=== PATIENT | female | born 1950 | race Caucasian/White ===

== ENCOUNTER 2025-02-22 09:22 | Emergency (ER) | payer MEDICARE, BC, SELFPAY ==
[2025-02-22] VITALS (13 sets, daily range): BP systolic 100–130; BP diastolic 74–93; PULSE 98–121; TEMP 36.7; O2SAT 94–98; BMI 30.4
--- NOTE | 2025-02-22 09:41 | ECG_ITS ---
[facility] Test Date: 2025-02-22 Pat Name: RAKEL ANDRADE Department: Room: - Gender: Female Lap Maker: : 1950 Requested By: [id number] Order Number: [id number] Reading MD: NAFISA BILLINGS M.D. Measurements Intervals [place] Rate: 108 P: -8 MA: 134 QRS: 45 QRSD: 92 T: 30 QT: 320 QTc: 384 Interpretive Statements 1120 Sinus tachycardia 2440 Incomplete right bundle branch block [address] depression 7300 Indeterminate axis 8003 Consistent with pulmonary disease 8102 Low QRS voltage in chest leads 9150 abnormal ECG No previous ECG available for comparison Electronically Signed On 02-22-2025 21:43:55 EDT by NAFISA BILLINGS M.D.
--- NOTE | 2025-02-22 09:43 | ED.GENADUL1 ---
HPI HPI - General Adult General Chief complaint: Nausea/Vomiting/Diarrhea Stated complaint: FALL VOMITTING DEHYDRATION Time Seen by Provider: 02/22/25 09:36 Source: patient Mode of arrival: walk-in History of Present Illness HPI narrative: 74-year-old female presents for multiple complaints. Her chief complaint seems to be nausea and vomiting. A week and a half ago she tripped and she fell and she hit the right side of her face. Since then she has had headache and neck pain and sometimes sees electricity. She states that she sees flashes intermittently. She also has a pain on the right side of her abdomen which previously was lower and now has moved to the upper right abdomen. No diarrhea but she has been vomiting and she was around the person who had been vomiting. No hematemesis or fever. She has been weak recently. She states that for a week she did not take her medications including her metoprolol and isosorbide. She took doses of each of those today. Related Data Home Medications ?Medication ?Instructions ?Recorded ?Confirmed alendronate 70 mg tablet 70 mg PO .Weekly 02/22/25 02/22/25 aspirin 81 mg tablet,delayed 81 mg PO DAILY 02/22/25 02/22/25 release (Tello Low Dose Aspirin) fluticasone 100 mcg-salmeterol 50 1 inh inhalation DAILY 02/22/25 02/22/25 mcg/dose blistr powdr for inhalation (Advair Diskus) furosemide 40 mg tablet 40 mg PO DAILY 02/22/25 02/22/25 isosorbide mononitrate 60 mg 60 mg PO DAILY 02/22/25 02/22/25 tablet,extended release 24 hr metoprolol succinate 50 mg 50 mg PO DAILY 02/22/25 02/22/25 tablet,extended release 24 hr nitroglycerin 0.4 mg sublingual 0.4 mg sublingual Q5M 02/22/25 02/22/25 tablet Allergies Allergy/AdvReac Type Severity Reaction Status Date / Time codeine AdvReac Severe Nausea Verified 02/22/25 09:46 latex AdvReac Severe Unknown Verified 02/22/25 09:46 naproxen (From Aleve) AdvReac Severe Numbness Verified 02/22/25 09:46 [id number] Reductase AdvReac Severe Swelling Verified 02/22/25 09:46 Inhibitor of Lip/Tongue/Throat triamterene AdvReac Severe Cramping Verified 02/22/25 09:46 of the Muscles Opioid HPI Opioid Management Most Recent Opioid Data: No Data to Display Review of Systems ROS Narrative A ten point review of systems is negative except as noted above. PFSH PFSH Medical History (Updated 02/22/25 @ 12:02 by Alfonso Charles MD) Cataract ?H26.9 - Unspecified cataract (ICD-10) Degenerative disk disease Osteoporosis ?M81.0 - Age-related osteoporosis without current pathological fracture (ICD-10) CVD (cardiovascular disease) ?I25.10 - Atherosclerotic heart disease of [place] coronary artery without angina pectoris (ICD-10) Surgical History (Updated 02/22/25 @ 11:38 by Gianni Otero RN) Hx of cholecystectomy ?Z90.49 - Acquired absence of other specified parts of digestive tract (ICD-10) Hx of knee surgery ?Z98.890 - Other specified postprocedural states (ICD-10) History of hysterectomy ?Z90.710 - Acquired absence of both cervix and uterus (ICD-10) H/O cardiac catheterization ?Z98.890 - Other specified postprocedural states (ICD-10) Social History Little interest or pleasure in doing things: not at all Feeling down, depressed, or hopeless: not at all Exam Narrative Exam Narrative: Nurses note and vital signs reviewed and patient is not hypoxic. General: The patient in no apparent distress. Skin: Warm, dry, no pallor noted. There is no rash noted. Head: Normocephalic, atraumatic Eye: Normal conjunctiva, no drainage, EOMI. PERRL Ears, Nose, Mouth, and Throat: oral mucosa is moist. Nares patent. Cardiovascular: Regular Rate and Rhythm, tachycardic Respiratory: Patient is in no distress, no accessory muscle use, lungs are clear to auscultation, no wheezing, rales or rhonchi Back: non-tender GI: She has some tenderness on the right side of the abdomen diffusely but there is no bruise or abrasion or focal area of tenderness. Musculoskeletal: The patient has no evidence of calf tenderness, no pitting edema, symmetrical pulses noted bilaterally Neurological: A&O x4, normal speech Psychiatric: Cooperative Constitutional Vital Signs, click to edit/add: Last Vital Signs Temp 98.1 F 04/21/25 09:33 Pulse 107 H 02/22/25 12:40 Resp 24 H 02/22/25 12:40 BP 110/78 02/22/25 12:31 Pulse Ox 94 L 02/22/25 12:40 Course Vital Signs Vital signs: Vital Signs Blood Pressure 130/93 H 02/22/25 09:32 Pulse Oximetry 95 02/22/25 09:32 Temperature 98.1 F 02/22/25 09:33 Pulse Rate 107 H 02/22/25 12:40 Respiratory Rate 24 H 02/22/25 12:40 Blood Pressure 110/78 02/22/25 12:31 Pulse Oximetry 94 L 02/22/25 12:40 Medical Decision Making MDM Narrative Medical decision making narrative: Her troponin came back elevated at 21,000. The CTs of her head, neck, face, and abdomen are negative. Radiologist noted a 26 x 23 mm hypodense mass in the left lower pole of the kidney. No acute intra-abdominal pathology. She was given aspirin and started on an IV heparin drip. EKG does not show any acute findings. The EKG does show a sinus tachycardia with a rate of [address] segment elevation. She has a history of heart catheterization, the last one was in 2011 and she has no stents. She is hemodynamically stable for transfer and agreeable for transfer. Treatment diagnosis and disposition were discussed with the patient. I spoke to the hospitalist at [facility] who accepts the patient. Differential Diagnosis Differential Diagnosis: Intracranial hemorrhage, facial fracture, intra-abdominal injury Lab Data Lab results reviewed: Yes I reviewed the patient's lab results Labs: Lab Results 02/22/25 02/22/25 Range/Units 09:43 11:24 WBC 15.4 H (4.0-11.0) 10^3/uL RBC 5.25 (4.20-5.40) 10^6/uL Hgb 14.8 (12.0-16.0) g/dL Hct 45.1 (36.0-48.0) % MCV 85.9 (81.0-99.0) fL MCH 28.2 (26.7-34.0) pg MCHC 32.8 (29.9-35.2) g/dL RDW 14.8 (11.0-15.0) % Plt Count 227 (150-450) 10^3/uL MPV 10.5 (9.5-13.5) fL Neut % (Auto) 78.3 H (43.0-75.0) % Lymph % (Auto) 12.7 L (20.5-60.0) % [place] % (Auto) 8.4 (1.7-12.0) % Eos % (Auto) 0.0 L (0.9-7.0) % Baso % (Auto) 0.3 (0.2-2.0) % Neut # (Auto) 12.1 H (1.4-6.5) 10^3/uL Lymph # (Auto) 2.0 (1.2-3.8) 10^3/uL [place] # (Auto) 1.3 H (0.3-0.8) 10^3/uL Eos # (Auto) 0.0 (0.0-0.7) 10^3/uL Baso # (Auto) 0.0 (0.0-0.1) 10^3/uL Abs Immat Gran (auto) 0.05 H (0.00-0.03) 10^3/uL Imm/Tot Granulo (auto) 0.3 (0.0-0.5) % Sodium 138 (136-145) mmol/L Potassium 3.8 (3.5-5.1) mmol/L Chloride 100 (98-107) mmol/L Carbon Dioxide 29.0 (21.0-32.0) mmol/L Anion Gap 12.8 BUN 18.0 (7.0-18.0) mg/dL Creatinine 0.82 (0.55-1.02) mg/dL Est GFR ( Amer) >60 (>=60 mL/min/1.73m^2) Est GFR (Non-Af Amer) >60 (>=60 mL/min/1.73m^2) BUN/Creatinine Ratio 22.0 Glucose 140 H (74-106) mg/dL Calcium 9.0 (8.5-10.1) mg/dL Troponin I High Sens 54261.7 H* 18335.8 H* (4.0-51.3) pg/mL Imaging Data CTs ofHead:, Neck, face, abdomen; chest x-ray: Radiologist's impression: CT abdomen: 26 x 23 mm hypodense mass in the left lower pole of the kidney CT C-spine: No malalignment or acute cervical spine fracture CT facial bones: No acute fracture or dislocation CT head: No acute intracranial process Chest x-ray no acute process ECG Data Attestation: I personally reviewed and interpreted this ECG as follows: (EKG on my interpretation shows sinus tachycardia with a rate of 108 and no acute changes.) Critical Care Time Critical Care Time Critical Care Time: Yes Total Critical Care Time: 45 Attestation: Due to the high probability of sudden and clinically significant deterioration in the patient's condition he/she required the highest level of my preparedness to intervene urgently I provided critical care time including documentation time, medication orders and management, reevaluation, vital sign assessment, ordering and reviewing of lab tests, ordering and reviewing of x-ray studies, and admission orders. Aggregate critical care time is 45 minutes including only time during which I was engaged in work directly related to his/her care and did not include time spent treating other patients simultaneously. Discharge Plan Discharge Chief Complaint: Nausea/Vomiting/Diarrhea Clinical Impression: Non-ST elevation [place] (NSTEMI) Patient Disposition: [facility] Time of Disposition Decision: 12:02 Discharge Location: [facility] Condition: Fair Mode of Transportation: EMS
[2025-02-22 09:50] LABS: Basophils Percent Auto 0.3 % (0.2-2.0); Hematocrit 45.1 % (36.0-48.0); Hemoglobin 14.8 g/dL (12.0-16.0); Immature Granulocytes Abs Auto 0.05 10^3/uL (0.00-0.03); Immature Granulocytes Pct Auto 0.3 % (0.0-0.5); Lymphocytes Percent Auto 12.7 % (20.5-60.0); Mean Corpuscular HGB Conc 32.8 g/dL (29.9-35.2); Mean Corpuscular Hemoglobin 28.2 pg (26.7-34.0); Mean Corpuscular Volume 85.9 fL (81.0-99.0); Mean Platelet Volume 10.5 fL (9.5-13.5); Monocytes Absolute Auto 1.3 10^3/uL (0.3-0.8); Monocytes Percent Auto 8.4 % (1.7-12.0); Neutrophils Absolute Auto 12.1 10^3/uL (1.4-6.5); Neutrophils Percent Auto 78.3 % (43.0-75.0); Platelet Count 227 10^3/uL (150-450); Red Blood Count 5.25 10^6/uL (4.20-5.40); Red Cell Distribution Width 14.8 % (11.0-15.0); White Blood Count 15.4 10^3/uL (4.0-11.0)
[2025-02-22] MEDS: 0.9 % SODIUM CHLORIDE 1,000 ML 1000 ML IV (10:00)
[2025-02-22 10:08] LABS: Anion Gap 12.8; Chloride 100 mmol/L (98-107); Estimated GFR (African America >60 (>=60 mL/min/1.73m^2); Estimated GFR (Non-African Ame >60 (>=60 mL/min/1.73m^2); Glucose 140 mg/dL (74-106); Potassium 3.8 mmol/L (3.5-5.1); Sodium 138 mmol/L (136-145)
[2025-02-22 10:10] LABS: Troponin I High Sensitivity 21976.7 pg/mL (4.0-51.3)
[2025-02-22 11:49] LABS: Troponin I High Sensitivity 22804.8 pg/mL (4.0-51.3)
[2025-02-22] MEDS: ASPIRIN 81 MG TAB.CHEW 324 MG PO (12:07)
[2025-02-22] MEDS: MORPHINE SULFATE 2 MG/ML SYRINGE IV ×2 (12:10→15:51)
[2025-02-22] MEDS: NITROGLYCERIN 0.4 MG BOTTLE SL (12:13)
[2025-02-22] MEDS: HEPARIN SODIUM,PORCINE/D5W 25,000 UNIT/500 ML IV.SOLN 18 UNIT IV (12:32)
[2025-02-22] MEDS: HEPARIN SODIUM (PORCINE) 5,000 UNIT/ML VIAL 2700 UNIT IV (12:32)
== END 2025-02-22 16:18 | disposition short-term general hospital (02) ==
PROVIDERS: Emergency Provider Emergency Medicine
DX: I21.4 Non-ST elevation (NSTEMI) myocardial infarction (principal); R11.2 Nausea with vomiting, unspecified; R51.9 Headache, unspecified; M54.2 Cervicalgia; R10.10 Upper abdominal pain, unspecified; R53.1 Weakness; Z90.49 Acquired absence of other specified parts of digestive tract; Z90.710 Acquired absence of both cervix and uterus; N28.89 Other specified disorders of kidney and ureter; Z91.81 History of falling
CPT/HCPCS: 36415; 70450; 70486; 71045; 72125; 74177; 80048; 81001; 84484; 85025; 93005; 96361; 96365; 96366; 96375; 96376; 99285; J1644; J2270; Q9967